=== PATIENT | male | born 1990 | race Caucasian/White ===

== ENCOUNTER 2017-06-28 03:15 | Emergency (ER) | payer OTHER ==
[~2017-06-28] VITALS: Ht 185.4 cm; Wt 89.4 kg
[~2017-06-28 03:15] MED LIST: ACETAMINOPHEN325 M1 PO; DICLOFENAC SODI75 MG PO; NOHOMEMEDICATIONS; NORCO 5-325 TA1 EACH PO; OXCARBAZEPINE300 M1 PO; PENICILLIN V P500 MG PO; PENICILLIN VK250 MG PO; TRAMADOL 50 MG50 MG PO; TRAZODONE HCL100 MG PO
[2017-06-28] MEDS ORDERED: TRAMADOL 50 MG50 MG PO (04:36)
[2017-06-28 04:41] VITALS: BP 144/80
== END 2017-06-28 04:41 | disposition home or self-care (01) ==
LOC: M.ERS 03:15
DX: S79.811A Other specified injuries of right hip, initial encounter (principal); G89.29 Other chronic pain; M54.9 Dorsalgia, unspecified; F17.210 Nicotine dependence, cigarettes, uncomplicated; Z88.5 Allergy status to narcotic agent; W11.XXXA Fall on and from ladder, initial encounter; Y93.89 Activity, other specified; Y92.89 Other specified places as the place of occurrence of the external cause; Y99.8 Other external cause status

== ENCOUNTER 2017-07-05 16:39 | Emergency (ER) | payer OTHER ==
[~2017-07-05] VITALS: Ht 185.4 cm; Wt 89.4 kg
[2017-07-05 16:48] VITALS: BP 123/79
[2017-07-05] MEDS ORDERED: TRAMADOL 50 MG50 MG PO (16:55)
[2017-07-05] MEDS ORDERED: NAPROSYN500 MG PO (16:56)
== END 2017-07-05 17:04 | disposition home or self-care (01) ==
LOC: M.ERS 16:39
DX: M25.551 Pain in right hip (principal); M54.9 Dorsalgia, unspecified; G89.29 Other chronic pain; F17.210 Nicotine dependence, cigarettes, uncomplicated; Z88.5 Allergy status to narcotic agent

== ENCOUNTER 2017-08-01 18:01 | Emergency (ER) | payer OTHER ==
[~2017-08-01] VITALS: Ht 182.9 cm; Wt 79.4 kg
[~2017-08-01 18:01] MED LIST changes: +NAPROSYN500 MG PO
[2017-08-01] MEDS ORDERED: MEDROLDOSEPACK PO (18:26)
[2017-08-01] MEDS ORDERED: TRAMADOL 50 MG50 MG PO (18:26)
[2017-08-01] MEDS ORDERED: ZOLOFT50 MG PO (18:32)
[2017-08-01] MEDS ORDERED: ZOLOFT25 MG PO (18:32)
[2017-08-01 18:33] VITALS: BP 143/85
== END 2017-08-01 18:33 | disposition home or self-care (01) ==
LOC: M.ERS 18:01
DX: M54.5 Low back pain (principal); F17.210 Nicotine dependence, cigarettes, uncomplicated; Z88.5 Allergy status to narcotic agent

== ENCOUNTER 2017-08-02 18:10 | Emergency (ER) | payer OTHER ==
[~2017-08-02] VITALS: Ht 185.4 cm; Wt 90.7 kg
[~2017-08-02 18:10] MED LIST changes: +MEDROLDOSEPACK PO; +ZOLOFT25 MG PO; +ZOLOFT50 MG PO
[2017-08-02 19:00] VITALS: BP 130/81
== END 2017-08-02 19:00 | disposition home or self-care (01) ==
LOC: M.ERS 18:10
DX: M54.5 Low back pain (principal); G89.29 Other chronic pain; F17.210 Nicotine dependence, cigarettes, uncomplicated; Z88.5 Allergy status to narcotic agent

== ENCOUNTER 2017-09-01 00:11 | Emergency (ER) | payer OTHER ==
[~2017-09-01] VITALS: Ht 185.4 cm; Wt 89.4 kg
[2017-09-01 00:34] LABS: ABSOLUTE BASOPHILS 0.1 thou/uL (0.0-0.2); ABSOLUTE EOSINOPHILS 0.1 thou/uL (0.0-0.7); ABSOLUTE LYMPHOCYTES 2.7 thou/uL (0.8-5.3); ABSOLUTE MONOCYTES 0.8 thou/uL (0.0-1.2); ABSOLUTE NEUTROPHILS 5.9 thou/uL (1.6-8.1); BASOPHILS 0.9 %; EOSINOPHILS 1.3 %; HEMOGLOBIN 14.9 gm/dL (14.0-18.0); LYMPHOCYTES 27.9 %; MCH 32.1 pg (26.0-34.0); MCHC 33.9 g/dL (28.0-37.0); MCV 94.7 fL (80.0-100.0); MONOCYTES 8.3 %; MPV 8.5 fl. (7.2-11.1); NUCLEATED RBCS 0 /100WBC; PLATELET COUNT* 289 thou/uL (150-400); POLYS 61.6 %; RBC 4.65 mil/uL (4.50-6.00); RDW-CV 16.1 % (10.5-14.5); WBC 9.6 thou/uL (4.0-11.0)
[2017-09-01 00:43] LABS: CALCIUM 9.2 mg/dL (8.5-10.1); CREATININE 0.9 mg/dL (0.6-1.3); POTASSIUM 3.4 mmol/L (3.5-5.1)
[2017-09-01 00:48] LABS: ALBUMIN 3.5 g/dL (3.4-5.0); TOTAL BILIRUBIN 0.3 mg/dL (<0.1-1.0); TOTAL PROTEIN 7.9 g/dL (6.4-8.2)
[2017-09-01 03:02] LABS: AMP/METHAMP Negative (Negative); BARBITURATES Negative (Negative); BENZODIAZEPINES POSITIVE (Negative); COCAINE Negative (Negative); METHADONE Negative (Negative); OPIATES Negative (Negative); PCP Negative (Negative); THC Negative (Negative)
[2017-09-01 03:33] VITALS: BP 97/53
== END 2017-09-01 03:28 | disposition home or self-care (01) ==
LOC: M.ERS 00:11
PROVIDERS: Emergency Medicine
DX: F10.129 Alcohol abuse with intoxication, unspecified (principal); F19.10 Other psychoactive substance abuse, uncomplicated; G89.29 Other chronic pain; M54.9 Dorsalgia, unspecified; Z88.5 Allergy status to narcotic agent

== ENCOUNTER 2018-09-13 00:40 | Emergency (ER) | payer OTHER ==
[~2018-09-13] VITALS: Ht 180.3 cm; Wt 76.2 kg
[2018-09-13 01:12] LABS: ABSOLUTE BASOPHILS 0.1 thou/uL (0.0-0.2); ABSOLUTE EOSINOPHILS 0.1 thou/uL (0.0-0.7); ABSOLUTE LYMPHOCYTES 3.2 thou/uL (0.8-5.3); ABSOLUTE MONOCYTES 0.9 thou/uL (0.0-1.2); ABSOLUTE NEUTROPHILS 4.2 thou/uL (1.6-8.1); BASOPHILS 0.7 %; EOSINOPHILS 0.8 %; HEMATOCRIT 44.2 % (42.0-52.0); HEMOGLOBIN 14.8 gm/dL (14.0-18.0); LYMPHOCYTES 37.7 %; MCH 31.4 pg (26.0-34.0); MCHC 33.4 g/dL (28.0-37.0); MCV 93.9 fL (80.0-100.0); MONOCYTES 10.8 %; MPV 7.9 fl. (7.2-11.1); NUCLEATED RBCS 0 /100WBC; PLATELET COUNT* 261 thou/uL (150-400); RBC 4.71 mil/uL (4.50-6.00); WBC 8.5 thou/uL (4.0-11.0)
[2018-09-13 01:21] LABS: CALCIUM 9.7 mg/dL (8.5-10.1); CREATININE 1.2 mg/dL (0.6-1.3); POTASSIUM 3.4 mmol/L (3.5-5.1)
[2018-09-13 01:30] LABS: TOTAL BILIRUBIN 0.8 mg/dL (<0.1-1.0); TOTAL PROTEIN 7.7 g/dL (6.4-8.2); TROPONIN-I LEVEL 0.13 ng/mL (<0.06)
[2018-09-13 02:41] VITALS: BP 119/67
--- NOTE | 2018-09-13 09:01 | EKG ---
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: [place] : 1990 Requested By: Karlie Baker Order Number: [id number] MD: Tito Varner Measurements Intervals [place] Rate: 78 P: 69 ID: [id number] QRS: 96 QRSD: 115 T: 93 QT: 385 QTc: 439 Interpretive Statements Sinus rhythm Left posterior fascicular block Nonspecific T abnormalities, lateral leads ST elev, probable normal early repol pattern Baseline wander in lead(s) I,II,aVR,aVL,V2 Electronically Signed On 09-13-2018 9:01:13 CDT by Tito Varner [email or web address] <ELECTRONICALLY SIGNED> By: Tito Varner MD, [facility] 09/13/18 0901 0209 0209 Tito Varner MD, [facility] /EPI
--- NOTE | 2018-09-13 16:31 | EKG ---
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1990 Requested By: Karlie Baker Order Number: [id number] MD: Tito Varner Measurements Intervals [place] Rate: 88 P: 71 SD: 146 QRS: 98 QRSD: 110 T: 62 QT: 359 QTc: 435 Interpretive Statements Sinus rhythm Left posterior fascicular block ST elev, probable normal early repol pattern No previous ECG available for comparison Electronically Signed On 09-13-2018 16:30:57 CDT by Tito Varner [email or web address] <ELECTRONICALLY SIGNED> By: Tito Varner MD, [facility] 09/13/18 1630 0054 0054 Tito Varner MD, [facility] /EPI
== END 2018-09-13 02:43 | disposition left against medical advice (07) ==
LOC: M.ERS 00:40
PROVIDERS: Emergency Medicine
DX: R79.89 Other specified abnormal findings of blood chemistry (principal); R07.89 Other chest pain; F17.210 Nicotine dependence, cigarettes, uncomplicated; G89.29 Other chronic pain; M54.9 Dorsalgia, unspecified